=== PATIENT | female | born 1985 | race Two or more races ===

== ENCOUNTER 2022-09-14 22:00 | Emergency (ER) | payer OTHER ==
[~2022-09-14] VITALS: Ht 165.1 cm; Wt 72.6 kg
== END 2022-09-15 10:13 | disposition home or self-care (01) ==
LOC: ER 22:00
DX: R10.84 Generalized abdominal pain (principal)

== ENCOUNTER 2025-01-03 10:12 | Outpatient (CLI) | payer OTHER | END 2025-01-03 10:18 | disposition home or self-care (01) | LOC: SONOGRAMA 10:12 | PROVIDERS: ATTEND General Practice | DX: N94.6 Dysmenorrhea, unspecified (principal) ==

== ENCOUNTER 2025-03-14 08:17 | Outpatient (CLI) | payer OTHER | END 2025-03-14 08:30 | disposition home or self-care (01) | LOC: MAMO-SONO 08:17 | PROVIDERS: ATTEND Obstetrics & Gynecology | DX: D64.4 Congenital dyserythropoietic anemia (principal); J34.89 Other specified disorders of nose and nasal sinuses ==

== ENCOUNTER 2025-06-05 07:52 | Outpatient (CLI) | payer OTHER | END 2025-06-05 08:00 | disposition home or self-care (01) | LOC: MRI 07:52 | PROVIDERS: ATTEND General Practice | DX: G44.099 Other trigeminal autonomic cephalgias (TAC), not intractable (principal) | CPT/HCPCS: 70553 ==